=== PATIENT | female | born 1985 | race Hispanic/Latino ===

== ENCOUNTER 2017-12-29 19:33 | Emergency (ER) | payer SELFPAY ==
[2017-12-29 19:37] VITALS: BP 107/75; PULSE 75; RESP 18; TEMP 36.9; O2SAT 100; BMI 29.2
--- NOTE | 2017-12-29 20:02 | ED.DENTAL ---
HPI - Dental/Oral <Adelita Moran PA-C - Last Filed: 12/29/17 22:09> General Chief complaint: Dental/Oral Stated complaint: TOOTH PAIN Time Seen by Provider: 12/29/17 19:34 Source: patient Mode of arrival: ambulatory Limitations: no limitations History of Present Illness HPI Narrative: This generally healthy 38-year-old is concerned about possible dental infection. She was seen for similar pain a few years ago and states she had her wisdom teeth removed. She has been trying to get into the dentist she saw previously and states that she is not able to be seen for about a month. She states that she has had worsening left upper tooth pain, points to area in between her molars, for 2 weeks, gradually worsening, and for the last 2 days has had fever up to 102 or 103 at home. She states that this improves with ibuprofen, which she has been taking along with Tylenol. She has also tried topical medications such as Orajel and clove oil, but pain continues to worsen. She denies any recent upper respiratory symptoms, cough or sinus pain, but states that dental pain is starting to radiate into her ear. She denies any other complaints today. She has not noted drainage from the tooth or comes nor facial swelling Related Data Previous Rx's Medication Instructions Recorded amoxicillin 500 mg PO Q8H #20 cap 12/29/17 Allergies Allergy/AdvReac Type Severity Reaction Status Date / Time metoclopramide Allergy Intermediate RASH Verified 12/29/17 19:41 Review of Systems <Adelita Moran PA-C - Last Filed: 12/29/17 22:09> Review of Systems All systems reviewed & are unremarkable except as noted in HPI and below PFSH <Adelita Moran PA-C - Last Filed: 12/29/17 22:09> Comment: Denies ETOH or street drug Exam <ANA Ocampo Last Filed: 12/29/17 22:09> Narrative Exam Narrative: GENERAL APPEARANCE: Patient sitting comfortably, in no distress. HEAD: No sinus TTP, no facial edema. EYES: PERRL, EOMI. EARS: Normal auditory canals, TMS intact with normal light reflexes. ORAL CAVITY: She has a gap in between the left upper 1st and 2nd molars. No tenderness over the 1st molar dental repair. No tenderness over the 2nd molar, however she is tender in the gap, and there is mild erythema there as well as surrounding the 2nd molar. No edema, fluctuance or drainage THROAT: Clear. NECK/THYROID: Neck supple, full range of motion, no cervical lymphadenopathy. LUNGS: Clear to auscultation bilaterally HEART: RRR without murmur, nl S1, S2, no S3 or S4. Initial Vital Signs Initial Vital Signs: Vital Signs Temperature 98.4 F 12/29/17 19:37 Pulse Rate 75 12/29/17 19:37 Respiratory Rate 18 12/29/17 19:37 Blood Pressure 107/75 12/29/17 19:37 Pulse Oximetry 100 12/29/17 19:37 <Blayne Reaves MD - Last Filed: 12/29/17 23:50> Initial Vital Signs Initial Vital Signs: Vital Signs Temperature 98.4 F 12/29/17 19:37 Pulse Rate 75 12/29/17 19:37 Respiratory Rate 18 12/29/17 19:37 Blood Pressure 107/75 12/29/17 19:37 Pulse Oximetry 100 12/29/17 19:37 Course <Adelita Moran PA-C - Last Filed: 12/29/17 22:09> Orders Ordered: Discontinued Medications Hydrocodone Bitart/Acetaminophen (Vicodin Prepack) 1 bottle MISC SEEINSTR ONE Stop: 12/29/17 20:24 Last Admin: 12/29/17 20:35 Dose: 1 bottle Amoxicillin ( Trimox 250mg Prepack) 1 bottle MISC SEEINSTR ONE Stop: 12/29/17 20:24 Last Admin: 12/29/17 20:34 Dose: 1 bottle Vital Signs - 8 hr 12/29/17 19:37 Temperature 98.4 F Pulse Rate 75 Respiratory Rate 18 Blood Pressure 107/75 Pulse Oximetry 100 <Blayne Reaves MD - Last Filed: 12/29/17 23:50> Orders Ordered: Discontinued Medications Hydrocodone Bitart/Acetaminophen (Vicodin Prepack) 1 bottle MISC SEEINSTR ONE Stop: 12/29/17 20:24 Last Admin: 12/29/17 20:35 Dose: 1 bottle Amoxicillin ( Trimox 250mg Prepack) 1 bottle MISC SEEINSTR ONE Stop: 12/29/17 20:24 Last Admin: 12/29/17 20:34 Dose: 1 bottle Vital Signs - 8 hr 12/29/17 19:37 Temperature 98.4 F Pulse Rate 75 Respiratory Rate 18 Blood Pressure 107/75 Pulse Oximetry 100 Discharge Plan Departure Patient Disposition: Home, Self-Care Clinical Impression: Pain, dental Discharge Date/Time: 12/29/17 20:46 Interventions: ED Discharge Assessment Last Done: 12/29/17 20:45 Instructions: DI for Dental Pain Activity Restrictions/Additional Instructions: You do not have an obvious abscess or infection, however the gums in the painful area around your tooth are somewhat inflamed. Since you have had a fever, we have given you amoxicillin to start on this evening. 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 You can take the pain pills if needed tonight. Continue your ibuprofen 800 mg every 8 hr. Please call your dentist to request urgent appointment tomorrow and let them know that you were seen in the emergency department Prescriptions: New amoxicillin 500 mg capsule 500 mg PO Q8H Qty: 20 RF: 0 Referrals: [facility] [Other] Anita Lynch MD [Primary Care Provider] - <Blayne Reaves MD - Last Filed: 12/29/17 23:50> Cosign ED Attending Jenniferature Attestation: I was available in ER for verbal consultation or to physically see the patient if need be. I agree with the evaluation and treatment plan.
[2017-12-29] MEDS: AMOXICILLIN 250 MG PREPACK 1 BOTTLE MISC (20:34)
[2017-12-29] MEDS: HYDROCODONE/ACET 5/325 PREPACK 1 BOTTLE MISC (20:35)
== END 2017-12-29 20:46 | disposition home or self-care (01) ==
PROVIDERS: Emergency Provider Internal Medicine; PCP Family Medicine
DX: K08.89 Other specified disorders of teeth and supporting structures (principal)
CPT/HCPCS: 99282